=== PATIENT | male | born 1990 | race American Indian/Alaskan Native ===

== ENCOUNTER 2016-06-06 06:24 | Emergency (ER) | payer BC ==
[2016-06-06 06:42] VITALS: RESP 18; TEMP 98.4
[2016-06-06] MEDS ORDERED: Sodium Chloride 0.9% 1,000 ML IV STA (07:20)
--- NOTE | 2016-06-06 07:37 | ED PDOC ---
HPI: Chest Pain Time Seen by Provider: 06/06/16 07:09 Chief Complaint (Nursing): Chest Pain Chief Complaint (Provider): Chest Pain History Per: Patient History/Exam Limitations: no limitations Onset/Duration Of Symptoms: Days Current Symptoms Are (Timing): Still Present Additional Complaint(s): 25 y/o male who presents to the emergency department with a complaint of a palpitations that started around 5am this morning. Associated with shortness of breath, chest pain, and dizziness. Reports this is the first time experiencing these symptoms. States he thought it was due to dehydration but is now concerned. Denies nausea, vomiting, diarrhea, headache, abdominal pain, numbness , tingling, weakness, cough, runny nose, congestion, runny nose, and leg pain. Had etoh a lot yesterday. No drugs. No leg pain, long distance travel, or hormone tx. PMD: Dr. Victorino Lemon MD Past Medical History Reviewed: Historical Data, Nursing Documentation, Vital Signs Vital Signs: Last Vital Signs Temp 98.4 F 06/06/16 06:39 Pulse 100 H 06/06/16 06:39 Resp 18 06/06/16 06:39 BP 132/82 06/06/16 06:39 Pulse Ox 100 06/06/16 07:54 - Medical History PMH: HTN (BEING WOKED UP) - Surgical History Surgical History: No Surg Hx - Family History Family History: States: Unknown Family Hx - Social History Current smoker - smoking cessation education provided: No Alcohol: Social Drugs: Denies - Allergies Allergies/Adverse Reactions: Allergies Allergy/AdvReac Type Severity Reaction Status Date / Time No Known Allergies Allergy Verified 06/06/16 07:19 Review of Systems ROS Statement: Except As Marked, All Systems Reviewed And Found Negative ENT: Negative for: Nose Discharge, Nose Congestion Cardiovascular: Positive for: Chest Pain, Palpitations Respiratory: Positive for: Shortness of Breath. Negative for: Cough Gastrointestinal: Negative for: Nausea, Vomiting, Abdominal Pain, Diarrhea Musculoskeletal: Negative for: Leg Pain Neurological: Positive for: Dizziness. Negative for: Weakness, Numbness, Headache, Other (tingling) Physical Exam - Reviewed Nursing Documentation Reviewed: Yes Vital Signs Reviewed: Yes - Physical Exam Appears: Positive for: Non-toxic, No Acute Distress Head Exam: Positive for: ATRAUMATIC, NORMOCEPHALIC Skin: Positive for: Normal Color, Warm, Dry Eye Exam: Positive for: Normal appearance. Negative for: Conjunctival injection Neck: Positive for: Normal, Supple Cardiovascular/Chest: Positive for: Regular Rate, Rhythm. Negative for: Edema, Murmur Respiratory: Positive for: Normal Breath Sounds. Negative for: Accessory Muscle Use, Respiratory Distress Gastrointestinal/Abdominal: Positive for: Normal Exam, Soft. Negative for: Tenderness Back: Positive for: Normal Inspection. Negative for: L CVA Tenderness, R CVA Tenderness Extremity: Positive for: Normal ROM. Negative for: Tenderness, Pedal Edema, Calf Tenderness, Swelling Neurologic/Psych: Positive for: Alert, Oriented - Laboratory Results Result Diagrams: 06/06/16 07:40 06/06/16 07:40 Interpretation Of Abn Labs: no acute - ECG ECG Rhythm: Positive for: Sinus Rhythm Interpretation Of Abn EKG: LVH O2 Sat by Pulse Oximetry: 100 (RA) Pulse Ox Interpretation: Normal - Radiology X-Ray: Read By Radiologist X-Ray Interpretation: No Acute Disease - Progress ED Course And Treament: 943: Stable. AAOx3. Pain free. Fu with pcp for further eval and tx. Medical Decision Making Medical Decision Making: Time: 7:09 Initial impression: Palpitations Initial plan: --Electrocardiogram Stat --COMP Metabolic Panel --Troponin I Stat --EKG-ED (EDNURTX) Stat --CBC w/ differential --Chest Portable (RAD) --Sodium Chloride 1,000 ml IV 1,000 mls/hr --Revaluation Scribe Attestation: Documented by Taisha Rosenthal, acting as a scribe for Milton Rich MD. Provider Scribe Attestation: All medical record entries made by the Scribe were at my direction and personally dictated by me. I have reviewed the chart and agree that the record accurately reflects my personal performance of the history, physical exam, medical decision making, and the department course for this patient. I have also personally directed, reviewed, and agree with the discharge instructions and disposition. Disposition - Clinical Impression Clinical Impression: Chest pain, Palpitations - Patient ED Disposition Is Patient to be Admitted: No Counseled Patient/Family Regarding: Studies Performed, Diagnosis, Need For Followup - Disposition Referrals: [facility] [Outside] - 06/08/16 Disposition: Routine/Home Disposition Time: 09:44 Condition: STABLE Additional Instructions: See your doctor for further evaluation, a holter monitor, and other tx. Return if not better in 3 days. Instructions: Chest Pain (ED), Palpitations (ED)
[2016-06-06 08:00] LABS: BASO % 0.2 % (0.0-2.0); EOS # 0.1 K/uL (0.0-0.7); EOS % 1.4 % (0.0-4.0); HEMATOCRIT 42.6 % (35.0-51.0); LYMPH # 1.2 K/uL (1.0-4.3); LYMPH % 22.6 % (20.0-40.0); MEAN CELL VOLUME 94.8 fl (80.0-94.0); MEAN CORPUSCULAR HEMOGLOBIN 30.9 pg (27.0-31.0); MEAN CORPUSCULAR HGB CONC 32.6 g/dL (33.0-37.0); MEAN PLATELET VOLUME 8.3 fl (7.2-11.7); MONO # 0.4 K/uL (0.0-0.8); MONO % 6.8 % (0.0-10.0); NEUT # 3.7 K/uL (1.8-7.0); RED CELL DISTRIBUTION WIDTH 12.3 % (11.5-14.5); WHITE BLOOD COUNT 5.4 K/uL (4.8-10.8)
[2016-06-06 08:02] LABS: ALB/GLOB RATIO 1.7 (1.0-2.1); ALKALINE PHOSPHATASE 77 U/L (38-126); ALT/SGPT 30 U/L (21-72); AST/SGOT 39 U/L (17-59); BILIRUBIN,TOTAL 0.5 mg/dl (0.2-1.3); BLOOD UREA NITROGEN 14 mg/dl (9-20); CALCIUM 9.4 mg/dL (8.4-10.2); CARBON DIOXIDE 28 mmol/L (22-30); CHLORIDE 103 mmol/L (98-107); GFR AFRICAN-AMERICAN > 60; GLUCOSE,RANDOM 83 mg/dL (75-110); POTASSIUM 4.1 MMOL/L (3.6-5.0); SODIUM 147 mmol/l (132-148); TOTAL PROTEIN 7.6 G/DL (6.3-8.2)
--- NOTE | 2016-06-06 09:33 | RAD ---
HISTORY: dyspnea COMPARISON: No prior. FINDINGS: LUNGS: No active pulmonary disease. PLEURA: No significant pleural effusion identified, no pneumothorax apparent. CARDIOVASCULAR: Normal. OSSEOUS STRUCTURES: No significant abnormalities. VISUALIZED UPPER ABDOMEN: Normal. OTHER FINDINGS: None. IMPRESSION: No active disease.
[2016-06-06 10:06] VITALS: BP 123/71; PULSE 77; O2SAT 99
--- NOTE | 2016-07-05 10:12 | CARD ---
APPROVED REPORT EKG Measurement Heart [id number] <Conclusion> Sinus tachycardia Minimal voltage criteria for LVH, may be normal variant Borderline ECG
== END 2016-06-06 10:08 | disposition home or self-care (01) ==
LOC: H.ER 06:24
DX: R00.2 Palpitations (principal); R06.02 Shortness of breath; I10 Essential (primary) hypertension; R07.9 Chest pain, unspecified; R42 Dizziness and giddiness
CPT/HCPCS: 71010; 80053; 84484; 85025; 96360; 99285; J7040